=== PATIENT | male | born 1995 | race Two or more races ===

== ENCOUNTER 2022-01-05 03:51 | Inpatient (IN) | payer BC, OTHER ==
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
[2022-01-05 05:04] LABS: Phencyclidine Screen,Urine Not Detected (NotDetected)
[2022-01-05 05:05] LABS: Amphetamine Screen,Urine Detected (NotDetected); Barbiturate Screen,Urine Not Detected (NotDetected); Benzodiazepines Screen,Urine Not Detected (NotDetected); Cocaine Screen,Urine Not Detected (NotDetected); Methadone Screen, Urine Not Detected (NotDetected); Opiate Screen,Urine Not Detected (NotDetected); Oxycodone Screen, Urine Not Detected (NotDetected); Tricyclic Antidepressant,Urine Not Detected (NotDetected); Urn Cannabinoid Scrn Detected (NotDetected)
[2022-01-05 05:25] LABS: Basophils # (A) 0.1 k/uL (0-0.2); Basophils % (A) 1 %; Eosinophils % (A) 0 %; HCT 46.2 % (39.0-53.0); Lymphocytes # (A) 1.2 k/uL (1.0-4.8); Lymphocytes % (A) 18 %; MCH 29.3 pg (25.0-35.0); MCHC 34.7 g/dL (31.0-37.0); MCV 84.4 fL (80.0-100.0); Mean Platelet Volume 7.6; Monocytes # (A) 0.4 k/uL (0-1.0); Monocytes % (A) 7 %; Neutrophils # (A) 4.8 k/uL (1.3-7.7); Neutrophils % (A) 72 %; Platelet Count 224 k/uL (150-450); RBC 5.48 m/uL (4.30-5.90); WBC 6.6 k/uL (3.8-10.6)
[2022-01-05 05:36] LABS: ALT 20 U/L (4-49); AST 22 U/L (17-59); African American GFR (CKD) >90 (>60 ml/min/1.73 sqM); Albumin 4.7 g/dL (3.5-5.0); Alkaline Phosphatase 57 U/L (38-126); Anion Gap 12 mmol/L; Blood Urea Nitrogen 10 mg/dL (9-20); Calcium 9.3 mg/dL (8.4-10.2); Carbon Dioxide 25 mmol/L (22-30); Chloride 100 mmol/L (98-107); Glucose 100 mg/dL (74-99); Non-African American GFR(CKD) >90 (>60 ml/min/1.73 sqM); Sodium 137 mmol/L (137-145); Total Bilirubin 0.5 mg/dL (0.2-1.3); Total Protein 7.2 g/dL (6.3-8.2)
[2022-01-05] MEDS ORDERED: LORazepam 2 MG/ML INJ IM STA (13:39)
[2022-01-05] MEDS ORDERED: HALOPERIDOL LACTATE 5 MG/ML 1 ML VIAL IM STA (13:39)
[2022-01-06] MEDS ORDERED: HALOPERIDOL LACTATE 5 MG/ML 1 ML VIAL IM STA ×2 (01:58→08:03)
[2022-01-06] MEDS ORDERED: LORazepam 2 MG/ML INJ IM STA ×2 (01:58→08:03)
[2022-01-06] MEDS ORDERED: LORazepam 2 MG/ML INJ IM PRN (08:04)
[2022-01-07] MEDS ORDERED: HALOPERIDOL LACTATE 5 MG/ML 1 ML VIAL IM PRN ×3 (09:57→11:23)
[2022-01-07] MEDS ORDERED: MAGNESIUM HYDROXIDE 2,400 MG/10 ML CUP PO PRN (11:23)
[2022-01-07] MEDS ORDERED: LORazepam 1 MG TAB PO PRN (11:23)
[2022-01-07] MEDS ORDERED: MAG HYDROX/AL HYDROX/SIMETH 30 ML CUP PO PRN (11:23)
[2022-01-07] MEDS ORDERED: ACETAMINOPHEN TAB 325 MG TAB PO PRN (11:23)
[2022-01-07] MEDS ORDERED: LORazepam 1 MG/0.5 ML VIAL IM PRN (11:27)
[2022-01-07] MEDS ORDERED: haloperidoL 5 MG TAB PO PRN (11:27)
[2022-01-07] MEDS ORDERED: traZODone HCL 100 MG TAB PO PRN (11:28)
[2022-01-07] MEDS: NICOTINE 14MG/24HR PATCH TRANSDERM SCH (12:23)
[2022-01-07 12:42] LABS: C. trachomatis,PCR Negative (Neg,Equiv); Chlamydia trachomatis Source Urine
--- NOTE | 2022-01-07 14:48 | P.HP ---
Psychiatric H&P - . H&P Date: 01/07/22 History & Physical: Allergies Allergy/AdvReac Type Severity Reaction Status Date / Time No Known Allergies Allergy Verified 01/05/22 12:00 Vital Signs Temp 97.7 F 01/07/22 12:15 Pulse 101 H 01/07/22 12:15 Resp 16 01/07/22 12:15 BP 99/54 01/07/22 12:15 Pulse Ox 95 01/07/22 12:15 FiO2 Intake & Output 01/06/22 01/07/22 01/07/22 18:59 06:59 18:59 Weight 58.9 kg Laboratory Last Values WBC 6.6 k/uL (3.8-10.6) 01/05/22 05:03 RBC 5.48 m/uL (4.30-5.90) 01/05/22 05:03 Hgb 16.0 gm/dL (13.0-17.5) 01/05/22 05:03 Hct 46.2 % (39.0-53.0) 01/05/22 05:03 MCV 84.4 fL (80.0-100.0) 01/05/22 05:03 MCH 29.3 pg (25.0-35.0) 01/05/22 05:03 MCHC 34.7 g/dL (31.0-37.0) 01/05/22 05:03 RDW 13.0 % (11.5-15.5) 01/05/22 05:03 Plt Count 224 k/uL (150-450) 01/05/22 05:03 MPV 7.6 01/05/22 05:03 Neutrophils % 72 % 01/05/22 05:03 Lymphocytes % 18 % 01/05/22 05:03 Monocytes % 7 % 01/05/22 05:03 Eosinophils % 0 % 01/05/22 05:03 Basophils % 1 % 01/05/22 05:03 Neutrophils # 4.8 k/uL (1.3-7.7) 01/05/22 05:03 Lymphocytes # 1.2 k/uL (1.0-4.8) 01/05/22 05:03 Monocytes # 0.4 k/uL (0-1.0) 01/05/22 05:03 Eosinophils # 0.0 k/uL (0-0.7) 01/05/22 05:03 Basophils # 0.1 k/uL (0-0.2) 01/05/22 05:03 Sodium 137 mmol/L (137-145) 01/05/22 05:03 Potassium 4.0 mmol/L (3.5-5.1) 01/05/22 05:03 Chloride 100 mmol/L (98-107) 01/05/22 05:03 Carbon Dioxide 25 mmol/L (22-30) 01/05/22 05:03 Anion Gap 12 mmol/L 01/05/22 05:03 BUN 10 mg/dL (9-20) 01/05/22 05:03 Creatinine 0.73 mg/dL (0.66-1.25) 01/05/22 05:03 Est GFR (CKD-EPI)AfAm >90 (>60 ml/min/1.73 sqM) 01/05/22 05:03 Est GFR (CKD-EPI)NonAf >90 (>60 ml/min/1.73 sqM) 01/05/22 05:03 Glucose 100 mg/dL (74-99) H 01/05/22 05:03 Calcium 9.3 mg/dL (8.4-10.2) 01/05/22 05:03 Total Bilirubin 0.5 mg/dL (0.2-1.3) 01/05/22 05:03 AST 22 U/L (17-59) 01/05/22 05:03 ALT 20 U/L (4-49) 01/05/22 05:03 Alkaline Phosphatase 57 U/L (38-126) 01/05/22 05:03 Total Protein 7.2 g/dL (6.3-8.2) 01/05/22 05:03 Albumin 4.7 g/dL (3.5-5.0) 01/05/22 05:03 Urine Opiates Screen Not Detected (NotDetected) 01/05/22 04:25 Ur Oxycodone Screen Not Detected (NotDetected) 01/05/22 04:25 Urine Methadone Screen Not Detected (NotDetected) 01/05/22 04:25 Ur Propoxyphene Screen Not Detected (NotDetected) 01/05/22 04:25 Ur Barbiturates Screen Not Detected (NotDetected) 01/05/22 04:25 U Tricyclic Antidepress Not Detected (NotDetected) 01/05/22 04:25 Ur Phencyclidine Scrn Not Detected (NotDetected) 01/05/22 04:25 Ur Amphetamines Screen Detected (NotDetected) H 01/05/22 04:25 U Methamphetamines Scrn Not Detected (NotDetected) 01/05/22 04:25 U Benzodiazepines Scrn Not Detected (NotDetected) 01/05/22 04:25 Urine Cocaine Screen Not Detected (NotDetected) 01/05/22 04:25 U Marijuana (THC) Screen Detected (NotDetected) H 01/05/22 04:25 Chlamydia Source Urine 01/05/22 04:25 Chlamydia DNA (PCR) Negative (Neg,Equiv) 01/05/22 04:25 Coronavirus (PCR) Not Detected (Not Detectd) 01/05/22 05:03 01/07/22 14:47 IDENTIFYING DATA: Patient is a 26-year-old single, [place]ian 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 HPI: Patient presented to the hospital 01/05/2022, brought into the hospital for psychiatric evaluation. The patient was petitioned and certified. He initially presented to the emergency department as bizarre, manic, racing thoughts, and attempting to fugue. The patient is originally from [place] and [place] to [place] however was unable to cross and was brought to our emergency department for psychiatric evaluation. While in the emergency department, the patient has eloped multiple times and has required the use of restraints and IM medications. The patient was subsequently petitioned and certified and admitted to our psychiatric unit. Upon evaluation on the psychiatric unit, the patient continues to be overtly psychotic. He states this provider that no one can be trusted and that his mother is "trans-sexual" and that she is not to be trusted. Attempts to elicit history from the patient was met with futility as the patient was quite somnolent throughout the interview however appear to be grossly disorganized and not to fully comprehend the reality of his situation and surroundings. However, the patient was able to report this provider that he has been "feeling off" for the past month. He states that he has been able to "realize a lot of things and put 2 and 2 together." He does endorse ideas of reference and this associations. He is overly psychotic. He does admit that he has been receiving 2-3 hours of sleep per night for the past month. Collateral information was obtained by the patient's mother Nanci Cordoba. The patient's mother reports that the patient has been increasingly paranoid and making bizarre accusations over the past month. She reports that they attempted to have him admitted to the psychiatric hospital in [place] however police informed them that he did not require admission at the time. The patient ended up leaving the home without anyone noticing and fugued to [place] in an attempt to go to [place]. As per mother, the patient has not had a history of psychiatric illness prior to this past month. She does suspect that patient has been overusing his Adderall as he requested his mother to have his normal adderall prescription be filled at a different pharmacy. She also reports that the patient engages in heavy marijuana use. She is unable to identify any previous history of depression. The patient's mother is also suspicious about the patient claiming that he has HIV. He is currently prescribed Descovy but this is a recent diagnosis. PAST PSYCHIATRIC HISTORY: As per collateral information obtained by the patient's mother, the patient has a history of ADHD. Patient has been prescribed Adderall for the past 2 year. No previous psychiatric admissions. No outpatient psychiatric follow-up. To the parent's understanding, there is no history of prior attempts at suicide. PMH: Past Medical History: No Reported History History of Any Multi-Drug Resistant Organisms: None Reported Past Surgical History: No Surgical Hx Reported Past Psychological History: ADD/ADHD Smoking Status: Never smoker Past Alcohol Use History: None Reported Past Drug Use History: Marijuana ALLERGIES: NO KNOWN DRUG ALLERGIES CHEMICAL DEPENDENCY HISTORY: The patient is reportedly using marijuana daily. There is concern that he has been overusing his Adderall prescription. FAMILY PSYCHIATRIC/SUBSTANCE USE HISTORY: SOCIAL HISTORY: Patient was born and raised in the [facility] and moved to [place] with his family when he was 17. He has 2 brothers. He currently lives with his mom and dad. His mother is a nurse. He is currently attending nursing school. MENTAL STATUS EXAM: General Appearance: Patient appears to be stated age is somewhat somnolent but directable, and attempts to cooperate. Patient appears to have fair hygiene and grooming. Behavior: Patient is lying down in bed without any agitated behavior. Speech: Patient's speech is fluent and nonpressured. Nonlinear. Mood/Affect: Patient reports their mood is "loopy." Affect is somnolent. Suicidality/Homicidality: Patient is denying any suicidal or homicidal ideation. Perceptions: Patient denies any visual hallucinations and denies any auditory hallucinations Though content/process: Patient is grossly disorganized, endorsing bizarre delusions and paranoid delusional thought content. Loose associations and ideas of reference are evident. Memory and concentration: Grossly poor at this time Judgment and insight: Very poor STRENGTHS/WEAKNESSES: Strength is that the patient has a supportive family and relatively no history of psychosis. Weakness is that the patient abuses marijuana and likely abuses Adderall. Insight and judgment are very poor at this time. INTELLECT: average IMPRESSIONS: Bipolar 1 disorder, manic episode versus schizoaffective disorder, bipolar type Cannabis use disorder Adderall abuse PLAN: -Patient is admitted under involuntary status to [facility] for stabilization of psychiatric symptoms and safety. A second certification was completed and along with petition will be filed for court. -Suspect patient's concerns for STDs may be related to psychiatric illness. Regardless, we will order STD testing including syphyllis and HIV. -Medications : Will start patient on Invega 3 mg by mouth at bedtime for schizoaffective disorder/bipolar disorder Depakote ER 500 mg by mouth at bedtime for mood stabilization -Ativan and Haldol PRN for agitation/aggression -Patient was informed of the risks, benefits and side effects of the medication however states initially he would not take medication but when approached later said he would. -Internal Medicine consult to perform medical evaluation and physical. -Patient's family would like him transferred eventually to [place] for further evaluation and treatment. However, the patient is grossly psychotic and manic at this time and is at high risk for elopement and flight. Once more stable, we may consider the family's wishes upon discussion with risk management. -SW on board for discharge planning. Encourage patient to participate in groups to work on coping skills. 01/07/22 14:48
[2022-01-07 16:52] LABS: HIV 2 AB Non-Reactive (Non-Reactive); HIV AB P24 Non-Reactive (Non-Reactive); HIV P24 AG Non-Reactive (Non-Reactive)
[2022-01-07] MEDS ORDERED: DIVALPROEX ER 500 MG TAB.ER.24H PO SCH (21:00)
[2022-01-08] MEDS: PALIPERIDONE 3 MG TAB.ER.24 PO SCH ×2 (01:24→20:35)
[2022-01-08] MEDS ORDERED: DESCOVY (Emtricitabine/Tenofov Alafenam) 200-25 Mg Tablet PO SCH (09:00)
[2022-01-08] MEDS: NICOTINE 14MG/24HR PATCH TRANSDERM SCH (10:09)
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
--- NOTE | 2022-01-08 14:27 | P.MDCNMH ---
History of Present Illness H&P Date: 01/08/22 Chief Complaint: Psychosis, medical management 26 with no significant medical history presented with psychosis. Medicine was consulted for medical clearance as well as management. Patient has no active medical issues at this time. Denies fevers, chills, nausea, vomiting, chest pain, palpitations, abdominal pain, sick, presyncope, cough, dyspnea, constipation, diarrhea, dysuria, dyschezia, numbness/weakness of extremities. Patient's hemodynamically stable. CBC, chemistries, liver function tests are unremarkable. Urine tox screen is positive for amphetamines and marijuana. Treponema antibody was nonreactive, chlamydia was negative, HIV was negative. All Systems reviewed and pertinent positives and negatives noted in HPI, all other symptoms are negative Gen: in no apparent distress, resting comfortably in bed Eyes: PERRL, no scleral injection or icterus HENT: normocephalic, atraumatic, good hearing acuity, moist mucous membranes Neck: no tracheal deviation, full range of motion Resp: good air exchange, breathing comfortably with no accessory muscle use, no tactile fremitus CVS: good distal perfusion x 4, no pitting edema GI: soft, NTTP, ND, no hepatosplenomegaly : no suprapubic tenderness, no CVAT, lucero catheter not present MSK: no clubbing, no cyanosis, no noted contractures of extremities Skin: no noted rashes, petechiae; temperature of skin is appropriate Neuro: moving all extremities without signs of weakness, CN II-XII intact Psych: cooperative, euthymic mood, insight and judgment impaired Labs and imaging as above Assessment/plan: Polysubstance abuse -Cessation counseling advised -Outpatient follow-up Psychosis -Care per primary team Thank you for this consult. A member of our team is available 28/09, please recheck via perfect serve should any questions or concerns arise. Past Medical History Past Medical History: No Reported History History of Any Multi-Drug Resistant Organisms: None Reported Past Surgical History: No Surgical Hx Reported Past Psychological History: ADD/ADHD Smoking Status: Never smoker Past Alcohol Use History: None Reported Past Drug Use History: Marijuana Medications and Allergies Home Medications Medication Instructions Recorded Confirmed Type Dextroamphetamine/Amphetamine 20 mg PO DAILY 01/05/22 01/05/22 History [Adderall Xr 20 mg Capsule] Emtricitabine/Tenofov Alafenam 1 tab PO DIRECTED 01/05/22 01/05/22 History [Descovy 200-25 mg Tablet] Allergies Allergy/AdvReac Type Severity Reaction Status Date / Time No Known Allergies Allergy Verified 01/05/22 12:00 Physical Exam Osteopathic Statement: *. No significant issues noted on an osteopathic structural exam other than those noted in the History and Physical/Consult. Vitals: Vital Signs Temp Pulse Resp BP 01/08/22 06:27 98.2 F 86 16 92/48 Intake and Output 01/07/22 01/08/22 01/08/22 22:59 06:59 14:59 Other: Weight 58.9 kg Cranial Nerve Examination - Cranial Nerves Cranial Nerve II- Optic: Intact Cranial Nerve III- Oculomotor: Intact Cranial Nerve IV- Trochlear: Intact Cranial Nerve V- Trigeminal: Intact Cranial Nerve - Abducens: Intact Cranial Nerve VII- Facial: Intact Cranial Nerve VIII- Auditory: Intact Cranial Nerve IX- Glossopharyngeal: Intact Cranial Nerve X- Vagus: Intact Cranial Nerve XI- Accessory: Intact Cranial Nerve XII- Hypoglossal: Intact Results CBC & Chem 7: 01/05/22 05:03 01/05/22 05:03
[2022-01-08 15:58] LABS: Appearance,Urine Clear (Clear); Bilirubin,Urine Negative (Negative); Blood,Urine Negative (Negative); Color,Urine Colorless; Glucose,Urine (UA) Negative (Negative); Ketones,Urine 1+ (Negative); Leukocyte Esterase,Urine Negative (Negative); Nitrite,Urine Negative (Negative); Protein,Urine Negative (Negative); Specific Gravity,Urine 1.006 (1.001-1.035); Urobilinogen,Urine <2.0 mg/dL (<2.0)
[2022-01-08 16:21] LABS: Basophils # (A) 0.1 k/uL (0-0.2); Basophils % (A) 2 %; Eosinophils % (A) 1 %; HCT 49.1 % (39.0-53.0); HGB 16.7 gm/dL (13.0-17.5); Lymphocytes # (A) 1.3 k/uL (1.0-4.8); Lymphocytes % (A) 23 %; MCH 29.2 pg (25.0-35.0); MCHC 34.1 g/dL (31.0-37.0); MCV 85.5 fL (80.0-100.0); Mean Platelet Volume 7.2; Monocytes # (A) 0.4 k/uL (0-1.0); Monocytes % (A) 7 %; Neutrophils # (A) 3.7 k/uL (1.3-7.7); Neutrophils % (A) 66 %; Platelet Count 248 k/uL (150-450); RBC 5.74 m/uL (4.30-5.90); RDW 12.6 % (11.5-15.5); WBC 5.7 k/uL (3.8-10.6)
[2022-01-08 16:35] LABS: ALT 26 U/L (4-49); AST 49 U/L (17-59); African American GFR (CKD) >90 (>60 ml/min/1.73 sqM); Albumin 4.7 g/dL (3.5-5.0); Alkaline Phosphatase 50 U/L (38-126); Anion Gap 13 mmol/L; Blood Urea Nitrogen 16 mg/dL (9-20); Carbon Dioxide 26 mmol/L (22-30); Chloride 100 mmol/L (98-107); Glucose 76 mg/dL (74-99); Non-African American GFR(CKD) 84 (>60 ml/min/1.73 sqM); Potassium 4.5 mmol/L (3.5-5.1); Sodium 139 mmol/L (137-145); Total Bilirubin 0.6 mg/dL (0.2-1.3); Total Protein 7.4 g/dL (6.3-8.2)
[2022-01-08] MEDS ORDERED: DIVALPROEX ER 500 MG TAB.ER.24H PO SCH ×2 (21:00)
[2022-01-09] MEDS: NICOTINE 14MG/24HR PATCH TRANSDERM SCH (08:46)
--- NOTE | 2022-01-09 12:51 | P.PN ---
Progress Note - Text Progress Note Date: 01/09/22 Interval History: Patient was seen resting in bed and was directable and agreeable to speak with law writer in the office. The patient reports that he is feeling significantly better today. He is currently denying any suicidal or homicidal ideation, intention,/or plan. He is not reporting any auditory or visual hallucinations. He states that he was able to sleep 4 hours last night. He reports an improvement in appetite. He has been adherent with his medication and is not endorsing any significant side effects at this time. He continues to report paranoia of others. He states that he was attempting to call his cousin in [place] but felt that the staff were judging him and were acting against him for making this phone call. He is able to acknowledge that this is paranoia and states that he feels like his brain "starts running away with these thoughts." He is otherwise not reporting any issues or concerns at this time. He has been attending groups. Mental Status Exam: General Appearance: Patient appears to be stated age is alert, directable, and cooperative. Behavior: Patient is calmly seated without any agitated behavior. Speech: Patient's speech is fluent and nonpressured. Mood/Affect: Mood is "I'm feeling better" affect is blunted. Suicidality/Homicidality: Patient denies having any suicidal or homicidal ideation intent or plan. Perceptions: Patient denies any visual hallucinations and denies any auditory hallucinations Though content/process: The patient is endorsing delusional thought content including paranoia and bizarre thoughts. Linear and more logical. Memory and concentration: AOX3, grossly intact for the purposes of this session Judgment and insight: Improving. Vital Signs Temp 97.8 F 01/09/22 06:52 Pulse 87 01/09/22 06:52 Resp 14 01/09/22 06:52 BP 130/67 01/09/22 06:52 Pulse Ox 97 01/09/22 06:52 FiO2 Intake & Output 01/08/22 01/09/22 01/09/22 18:59 06:59 18:59 Weight 58.9 kg Laboratory Results - Last 24 Hours 01/08/22 01/08/22 01/08/22 14:30 15:57 15:57 WBC 5.7 RBC 5.74 Hgb 16.7 Hct 49.1 MCV 85.5 MCH 29.2 MCHC 34.1 RDW 12.6 Plt Count 248 MPV 7.2 Neutrophils % 66 Lymphocytes % 23 Monocytes % 7 Eosinophils % 1 Basophils % 2 Neutrophils # 3.7 Lymphocytes # 1.3 Monocytes # 0.4 Eosinophils # 0.0 Basophils # 0.1 Sodium 139 Potassium 4.5 Chloride 100 Carbon Dioxide 26 Anion Gap 13 BUN 16 Creatinine 1.19 Est GFR (CKD-EPI)AfAm >90 Est GFR (CKD-EPI)NonAf 84 Glucose 76 Calcium 9.0 Total Bilirubin 0.6 AST 49 ALT 26 Alkaline Phosphatase 50 Total Protein 7.4 Albumin 4.7 TSH 1.380 Urine Color Colorless Urine Appearance Clear Urine pH 6.0 Ur Specific [place] 1.006 Urine Protein Negative Urine Glucose (UA) Negative Urine Ketones 1+ H Urine Blood Negative Urine Nitrite Negative Urine Bilirubin Negative Urine Urobilinogen <2.0 Ur Leukocyte Esterase Negative Assessment Bipolar 1 disorder, manic episode versus schizoaffective disorder, bipolar type Cannabis use disorder Plan: -Patient continues to meet criteria for inpatient psychiatric admission for symptom stabilization and safety. Patient has been petitioned and certified. -Scheduled for derral on wednesday. -Medications: Increase Invega to 6 mg daily at bedtime for psychosis. Consider transition to PATEL invega sustenna. Depakote ER 500 mg by mouth at bedtime for mood stabilization -When necessary Ativan and Haldol for agitation/aggression. -SW on board for discharge planning. Encouraged the patient to participate in milieu.
[2022-01-09] MEDS: PALIPERIDONE 6 MG TAB.ER.24 PO SCH (20:14)
[2022-01-10] MEDS: ARTIFICIAL TEARS-HYPROMELLOSE DROPS 15 ML BTL BOTH EYES PRN ×2 (09:38→20:04)
[2022-01-10] MEDS: NICOTINE 14MG/24HR PATCH TRANSDERM SCH (09:38)
[2022-01-10] MEDS: PALIPERIDONE 6 MG TAB.ER.24 PO SCH (20:04)
--- NOTE | 2022-01-10 21:46 | P.PN ---
Progress Note - Text Progress Note Date: 01/10/22 Interval history: Patient was seen resting in bed and was directable and agreeable to speak with board writer. He is somewhat pressured on assessment and begins to ramble about his mother; endorsing some paranoid ideations about his mother. He reports difficulty falling asleep. At this time patient denies any suicidal or homicidal ideation, intent or plan. Denies any auditory or visual hallucinations. Patient denies any side effects from the medications and has been compliant with meds. Mental status exam: General Appearance: Patient appears to be stated age is alert, directable, and cooperative. Behavior: No agitated behavior. Patient is calm and directable. Resting in bed. Speech: Patient's speech is fluent and still somewhat pressured. Mood/Affect: Mood is good, affect is congruent. Suicidality/Homicidality: Patient denies having any suicidal or homicidal ideati on intent or plan. Perceptions: Patient denies any auditory or visual hallucinations. Though content/process: He is fixated/rambles about his mother. Endorsing some paranoid ideations about his mother. Memory and concentration: AOX3, grossly intact for the purposes of this session Judgment and insight: improving mildly Assessment/Plan: Continue with current diagnosis. Patient continues to meet criteria for inpatient psychiatric admission for symptom stabilization and safety. Increase Invega to 9 mg QHS starting tomorrow night for psychosis/mood stabilization, with plan to switch to PATEL when stabilized at ideal dose. Monitor for medication compliance and for any psychotropic medication side effects. Will continue to monitor ongoing response to treatment. Encouraged participation in milieu.
[2022-01-11] MEDS: NICOTINE 14MG/24HR PATCH TRANSDERM SCH (10:07)
[2022-01-11] MEDS: ARTIFICIAL TEARS-HYPROMELLOSE DROPS 15 ML BTL BOTH EYES PRN (10:07)
[2022-01-11] MEDS: PALIPERIDONE 6 MG TAB.ER.24 PO SCH (20:17)
--- NOTE | 2022-01-11 22:11 | P.PN ---
Progress Note - Text Progress Note Date: 01/11/22 Interval history: Patient was seen socializing with peers, was directable and agreeable to speak with story writer. His mood is somewhat elevated, reports he got the "best sleep ever" last night despite telling me last night he was having difficulty falling asleep. At this time patient denies any suicidal or homicidal ideation, intent or plan. Denies any auditory or visual hallucinations. Patient denies any side effects from the medications and has been compliant with meds. Mental status exam: General Appearance: Patient appears to be stated age is alert, directable, and cooperative. Behavior: No agitated behavior. Socializing with peers and talkative. Speech: Patient's speech is fluent and less pressured today. Mood/Affect: Mood appears elevated, affect is congruent. Suicidality/Homicidality: Patient denies having any suicidal or homicidal ideation intent or plan. Perceptions: Patient denies any auditory or visual hallucinations. Though content/process: He is focused on discharge. No paranoid ideations expressed to me today. Memory and concentration: AOX3, grossly intact for the purposes of this session Judgment and insight: improving mildly Assessment/Plan: Continue with current diagnosis. Patient continues to meet criteria for inpatient psychiatric admission for symptom stabilization and safety. Increase Invega to 9 mg QHS tonight for psychosis/mood stabilization, with plan to switch to PATEL when stabilized at ideal dose. Monitor for medication compliance and for any psychotropic medication side effects. Will continue to monitor ongoing response to treatment. Encouraged participation in milieu.
[2022-01-12] MEDS: ARTIFICIAL TEARS-HYPROMELLOSE DROPS 15 ML BTL BOTH EYES PRN (08:27)
--- NOTE | 2022-01-12 14:19 | P.PN ---
Progress Note - Text Progress Note Date: 01/12/22 S&O: Patient was seen in rounds. He was admitted following his ER visit on 01/05/2022 for psychiatric evaluation. Apparently he was bizarre manic had racing thoughts. His psychiatric H&P shows the diagnosis of bipolar 1 disorder manic episode versus schizoaffective disorder bipolar type and cannabis use disorder. Patient was never in a psychiatric hospital and was not treated for any psychiatric condition in the past except by a psychiatrist who treated him with Adderall for ADHD. He was on 25 mg a day. Patient said he did not have any learning issues or behavioral problems when he was in primary or middle school. However he had to go to principal's office for cheating and denies any problem in focusing on his studies. He said he was sent to school at the age of 3 and everyone else were older to him in the classes. He has been taking Adderall for the last 2 years now. He had done ecstasy at least once has been smoking one pipe of pot every day. He also has been using CBT and delta 8. The nurses note indicate he has been sleeping at night at least 5 hours a day. He is currently on Invega 9 mg at bedtime and his when necessary trazodone was changed to melatonin earlier per his request. Patient said he may have PTSD from 2 failed same-sex relationship. He said he was kicked out of [employer] since he was partying a lot with his friends apparently doing drugs and not doing his homework. He is in second nursing school now. This is a [place] male with good hygiene. He does not show any psychomotor agitation or retardation. He is not hyperactive either. His speech is spontaneous, gets tangential and over inclusive. His mood is euthymic and affec t is appropriate. He denies current hallucinations delusional thinking including grandiosity. He denies any manic behavior except for partying with his friends and abusing drugs. He denies suicide and homicide thoughts. He is well oriented with adequate memory and general knowledge. A: He does not have all the required criteria for the diagnosis of bipolar disorder at this time. It is possible his behavioral problems are related to substance abuse and Adderall use. Plan: Continue Invega and melatonin. sugar mill worker will gather more information. Continue current therapy and supervision. His discharge plan will be discussed tomorrow in the treatment team meeting since he is asking to go home.
[2022-01-12] MEDS: PALIPERIDONE 6 MG TAB.ER.24 PO SCH (20:06)
[2022-01-12] MEDS: MELATONIN 5 MG TABLET PO SCH (20:06)
[2022-01-13 10:52] VITALS: BMI 21.0
--- NOTE | 2022-01-13 14:41 | P.PN ---
Progress Note - Text Progress Note Date: 01/13/22 S&O: Patient was seen in rounds. His situation was discussed in the treatment team this morning. Since patient is from [place] and he wants to return to [facility] the team felt his parents can come tomorrow and take him over there and continue with treatment in [facility]. pass worker will be getting in touch with patient's parents. Patient said he slept very well last night on melatonin 10 mg at night. He has been attending groups and socializing with other patients. He said he feels better today. He is still on Invega and does not have any adverse effects. This is a [place] male with good hygiene. He is polite and cooperative. He does not show any psychomotor agitation or retardation. His speech is spontaneous, relevant and goal-directed today. He does not show any overt inclusiveness or tangentiality. His mood is euthymic to fairly cheerful and affect is appropriate. He denies hallucinations delusional thinking, suicidal and homicidal thoughts. His sensorium is clear. A&P: Continue melatonin, Invega and therapies. He was advised to see a different psychiatrist in [facility] continue not to take Adderall, not to use cannabis in any form and learn better coping skills from therapy. He was also advised to work with his psychiatrist and see if he needs to continue Invega or he would be okay without Invega while not taking Adderall or abusing cannabis. He agreed with this.
[2022-01-13] MEDS: PALIPERIDONE 6 MG TAB.ER.24 PO SCH (20:45)
[2022-01-13] MEDS: MELATONIN 5 MG TABLET PO SCH (21:15)
[2022-01-14 07:01] VITALS: BP 109/56; PULSE 76; RESP 14; TEMP 97.6
--- NOTE | 2022-01-14 10:21 | P.DS ---
Providers Date of admission: 01/07/22 11:22 Expected date of discharge: 01/14/22 Attending physician: Ag Lange MD Consults: 01/07/22 11:23 Consult Physician Routine Consulting Provider: Moreno Allen Consult Reason/Comments: history and physical Do you want consulting provider notified?: Yes, Notify in am Primary care physician: Stated None Hospital Course: Patient had his psychiatric H&P done by Dr. Lange on 01/07/2022 and general H&P done by Dr. Koehler on 01/08/2022. After his psychiatric H&P he was started on Invega 9 mg at bedtime. He was also given melatonin to help him sleep well. He received milieu therapy and group therapy individual therapy occupational therapy and recreational therapy. He was counseled about his prescribed amphetamine use and cannabis use and there impact on his mental health. He was advised to work with his outpatient psychiatrist to get his Invega tapered off and see if the psychotic symptoms reappear and to restart on Invega if the symptoms reappear. He agreed. He was also advised not to take stimulants or abuse cannabis and he agreed. His discharge plans were discussed by the treatment team yesterday and it was agreed to discharge him today. His parents are on their way from [place] to pick him up. Patient Condition at Discharge: Stable Plan - Discharge Summary New Discharge Prescriptions: New Paliperidone [Invega] 6 mg PO HS 30 Days #30 tab Artificial Tears-Hypromellose [Artificial Tear Drops] 1 drops BOTH EYES QID PRN ml PRN Reason: Dry Eye(S) Mag Hydrox/Al Hydrox/Simeth [Maalox] 30 ml PO Q4HR PRN ml PRN Reason: GI Upset Melatonin 10 mg PO HS 30 Days #30 tab Acetaminophen Tab [Tylenol] 650 mg PO Q4HR PRN tab PRN Reason: Pain/Discomfort Discontinued Dextroamphetamine/Amphetamine [Adderall Xr 20 mg Capsule] 20 mg PO DAILY Emtricitabine/Tenofov Alafenam [Descovy 200-25 mg Tablet] 1 tab PO DIRECTED Discharge Medication List Acetaminophen Tab [Tylenol] 650 mg PO Q4HR PRN tab 01/14/22 [Rx] Artificial Tears-Hypromellose [Artificial Tear Drops] 1 drops BOTH EYES QID PRN ml 01/14/22 [Rx] Mag Hydrox/Al Hydrox/Simeth [Maalox] 30 ml PO Q4HR PRN ml 01/14/22 [Rx] Melatonin 10 mg PO HS 30 Days #30 tab 01/14/22 [Rx] Paliperidone [Invega] 6 mg PO HS 30 Days #30 tab 01/14/22 [Rx] Follow up Appointment(s)/Referral(s): [facility] [Other] - 01/22/22 10:00 am Efrain Sandy MD [Other] - 1 Week Patient Instructions/Handouts: Bipolar Disorder (DC) Activity/Diet/Wound Care/Special Instructions: Avoid the use of street drugs and alcohol. Take all prescriptions as prescribed. When you are in need of refills on your medications, please contact your medical provider and/or outpatient psychiatrist to have this done. Please go to scheduled outpatient appointment for aftercare treatment. If symptoms return or become worse, call the crisis line at and/or go to the nearest emergency room for evaluation.
--- NOTE | 2022-01-14 14:57 | P.DS ---
Providers Date of admission: 01/07/22 11:22 Expected date of discharge: 01/14/22 Attending physician: Ag Lange MD Consults: 01/07/22 11:23 Consult Physician Routine Consulting Provider: Moreno Allen Consult Reason/Comments: history and physical Do you want consulting provider notified?: Yes, Notify in am Primary care physician: Stated None - Discharge Diagnosis(es) (1) Other stimulant abuse with stimulant-induced psychotic disorder, unspecified Current Visit: Yes Status: Acute Priority: High Patient Condition at Discharge: Good Plan - Discharge Summary New Discharge Prescriptions: New Paliperidone [Invega] 6 mg PO HS 30 Days #30 tab Artificial Tears-Hypromellose [Artificial Tear Drops] 1 drops BOTH EYES QID PRN ml PRN Reason: Dry Eye(S) Mag Hydrox/Al Hydrox/Simeth [Maalox] 30 ml PO Q4HR PRN ml PRN Reason: GI Upset Melatonin 10 mg PO HS 30 Days #30 tab Acetaminophen Tab [Tylenol] 650 mg PO Q4HR PRN tab PRN Reason: Pain/Discomfort Discontinued Dextroamphetamine/Amphetamine [Adderall Xr 20 mg Capsule] 20 mg PO DAILY Emtricitabine/Tenofov Alafenam [Descovy 200-25 mg Tablet] 1 tab PO DIRECTED Discharge Medication List Acetaminophen Tab [Tylenol] 650 mg PO Q4HR PRN tab 01/14/22 [Rx] Artificial Tears-Hypromellose [Artificial Tear Drops] 1 drops BOTH EYES QID PRN ml 01/14/22 [Rx] Mag Hydrox/Al Hydrox/Simeth [Maalox] 30 ml PO Q4HR PRN ml 01/14/22 [Rx] Melatonin 10 mg PO HS 30 Days #30 tab 01/14/22 [Rx] Paliperidone [Invega] 6 mg PO HS 30 Days #30 tab 01/14/22 [Rx] Follow up Appointment(s)/Referral(s): [facility] [Other] - 01/22/22 10:00 am Efrain Sandy MD [Other] - 1 Week Patient Instructions/Handouts: Bipolar Disorder (DC) Activity/Diet/Wound Care/Special Instructions: Avoid the use of street drugs and alcohol. Take all prescriptions as prescribed. When you are in need of refills on your medications, please contact your medical provider and/or outpatient psychiatrist to have this done. Please go to scheduled outpatient appointment for aftercare treatment. If symptoms return or become worse, call the crisis line at and/or go to the nearest emergency room for evaluation.
== END 2022-01-14 16:09 | disposition home or self-care (01) | DRG 885 ==
LOC: EC 03:51 → 3MHU 01-07 11:22
PROVIDERS: ADMIT Psychiatry & Neurology Psychiatry; ATTEND Psychiatry & Neurology Psychiatry
DX: F25.0 Schizoaffective disorder, bipolar type (principal); F41.9 Anxiety disorder, unspecified; F12.10 Cannabis abuse, uncomplicated; F15.159 Other stimulant abuse with stimulant-induced psychotic disorder, unspecified; F17.210 Nicotine dependence, cigarettes, uncomplicated; F60.0 Paranoid personality disorder; F90.9 Attention-deficit hyperactivity disorder, unspecified type; Z78.1 Physical restraint status; Z20.822 Contact with and (suspected) exposure to COVID-19; Z71.3 Dietary counseling and surveillance
CPT/HCPCS: 36415; 80053; 80306; 81003; 82075; 84443; 85025; 86780; 87390; 87491; 87635; 96372; 99285